=== PATIENT | female | born 1955 | race Caucasian/White ===

== ENCOUNTER 2017-11-20 06:37 | Observation (INO) | payer OTHER ==
[2017-11-20] MEDS ORDERED: NS 1,000 ML IV ONE (06:42)
--- NOTE | 2017-11-20 07:06 | CPEKG ---
Heart Rate: 83 RR Interval: 723 P-R Interval: 176 QRSD Interval: 86 QT Interval: 364 QTC Interval: 428 P [place]: 59 QRS [place]: 26 T Wave [place]: 53 EKG Severity - NORMAL ECG - EKG Impression: SINUS RHYTHM Electronically Signed By: Zeke Truong 20-Nov-2017 07:27:11
[2017-11-20 07:19] LABS: PLATELET COUNT 242 10^3/uL (150-400)
[2017-11-20 07:27] LABS: INR 0.83 (0.83-1.16); PROTIME(PATIENT) 11.6 SEC (12.0-15.0)
--- NOTE | 2017-11-20 08:15 | PDANEPAE ---
ANE History of Present Illness h/o SVT p/f EPS/ablation ANE Past Medical History - Cardiovascular History Hx Hypertension: Yes Hx Arrhythmias: Yes Hx Chest Pain: No Hx Coronary Artery / Peripheral Vascular Disease: No Hx CHF / Valvular Disease: No Hx Palpitations: Yes - Pulmonary History Hx COPD: Yes Hx Oxygen in Use at Home: No Hx Sleep Apnea: Yes - Neurologic History Hx Cerebrovascular Accident: No Hx Seizures: No Hx Dementia: No - Chronic Pain History Chronic Pain: Yes ANE Review of Systems Review of systems is: negative Review of Systems: - Exercise capacity Exercise capacity: <4 METS ANE Patient History - Allergies Allergies/Adverse Reactions: No Known Allergies Allergy (Unverified 11/18/17 13:49) - Home Medications Home medications: home medication list seen and reviewed Home Medications: Amitriptyline HCl [Elavil 50 mg (*)] 25 - 50 mg PO HS 11/18/17 [Last Taken 11/19 20:00] DULoxetine [Cymbalta 30 MG (*)] 30 mg PO DAILY 11/18/17 [Last Taken 11/19/17 06: 30] DULoxetine [Cymbalta 60 MG (*)] 90 mg PO DAILY 11/18/17 [Last Taken 11/19/17 06: 30] Gabapentin [Neurontin 300 MG (*)] 1,200 mg PO HS 11/18/17 [Last Taken 11/19/17 20:00] Metoprolol Tartrate [Lopressor 25 mg (*)] 25 mg PO BID 11/18/17 [Last Taken 05/24 06:30] Pantoprazole Sodium [Protonix 40mg (*)] 40 mg PO DAILY 11/18/17 [Last Taken 06:30] Tapentadol HCl [Nucynta 50 MG (*)] 50 mg PO TID 11/18/17 [Last Taken 11/20/17 06 :00] amLODIPine BESYLATE [Norvasc 5 mg (*)] 5 mg PO DAILY 11/18/17 [Last Taken 06:30] - Anes Hx Anes Hx: no prior problems - Smoking Hx Smoking Status: Heavy smoker ANE Labs/Vital Signs - Labs Result Diagrams: 11/20/17 07:00 11/20/17 07:00 - Vital Signs Height: 173 cm Weight: 88.5 kg ANE Physical Exam - Airway Neck exam: FROM Mallampati Score: Class 2 Mouth exam: dentures - Pulmonary Pulmonary: no respiratory distress - Cardiovascular Cardiovascular: regular rate and rhythym - ASA Status ASA Status: III ANE Anesthesia Plan Anesthesia Plan: general endotracheal anesthesia
[2017-11-20] MEDS ORDERED: LIDOCAINE 1% 300 MG/30 ML SDV ONE (08:23)
[2017-11-20] MEDS ORDERED: fentaNYL 100 MCG/2 ML INJ ONE (08:23)
[2017-11-20] MEDS ORDERED: HEPARIN 10,000 UNIT/10 ML MDV (1,000 UNIT/ML) ONE (08:23)
[2017-11-20] MEDS ORDERED: PROPOFOL 200 MG/20 ML VIAL ONE ×2 (08:23→09:06)
[2017-11-20] MEDS ORDERED: BUPIVACAINE 0.5% 30 ML SDV ONE (08:23)
[2017-11-20] MEDS ORDERED: ISOPROTERENOL HCL/D5W 0.2 MG/50 ML BAG IV ONE (08:24)
[2017-11-20] MEDS ORDERED: ROCURONIUM 100 MG/10 ML VIAL ONE (08:29)
[2017-11-20] MEDS ORDERED: MIDAZOLAM 2 MG/2 ML VIAL IVP ONE (08:32)
[2017-11-20] MEDS ORDERED: PHENYLEPHRINE HCL 100 MCG/ML SYR ONE (08:33)
[2017-11-20] MEDS ORDERED: DEXAMETHASONE 4 MG/ML VIAL ONE (08:39)
[2017-11-20] MEDS ORDERED: ONDANSETRON 4 MG/2 ML VIAL ONE (08:39)
[2017-11-20] MEDS ORDERED: SUGAMMADEX SODIUM 200 MG/2 ML VIAL IVP ONE (08:39)
--- NOTE | 2017-11-20 08:40 | PDGENHP ---
History & Physical Chief Complaint: symptomatic svt History of Present Illness: svt Relevant Physical Exam: [id number] Cardiorespiratory Assessment: sx svt for ablation
[2017-11-20] MEDS ORDERED: PHENYLEPHRINE 10 MG/ML SDV ONE (08:48)
[2017-11-20] MEDS ORDERED: HYDROmorphONE/DILAUDID 1 MG/ML INJ IVP PRN (10:57)
[2017-11-20] MEDS ORDERED: HYDROCODONE/APAP 5/325 TAB PO PRN (10:57)
[2017-11-20] MEDS ORDERED: OXYCODONE/APAP 5/325 TAB PO PRN (10:57)
[2017-11-20] MEDS ORDERED: NALOXONE HCL 0.4 MG/ML INJ IVP PRN (10:57)
[2017-11-20] MEDS ORDERED: NS 500 ML IV PRN (10:57)
[2017-11-20] MEDS ORDERED: ACETAMINOPHEN 500 MG TAB PO PRN (10:57)
[2017-11-20] MEDS ORDERED: ALBUTEROL 3 ML DEYVIAL IH PRN (10:57)
[2017-11-20] MEDS ORDERED: fentaNYL 100 MCG/2 ML INJ IVP PRN (10:57)
[2017-11-20] MEDS ORDERED: ONDANSETRON 4 MG/2 ML VIAL IVP PRN (10:57)
--- NOTE | 2017-11-20 10:57 | POSTANESTH ---
Post Anesthetic Evaluation Cardiovascular Status: Normal, Stable Respiratory Status: Normal, Stable Level of Consciousness/Mental Status: Can Participate in Eval Pain Control: Adequate, Prn Tx Ordered Nausea/Vomiting Control: Adequate, Prn Tx Ordered Complications Possibly Related to Anesthesia: None Noted
--- NOTE | 2017-11-20 11:08 | CPEKG ---
Heart Rate: 77 RR Interval: 779 P-R Interval: 180 QRSD Interval: 90 QT Interval: 388 QTC Interval: 440 P [place]: 71 QRS [place]: 36 T Wave [place]: 55 EKG Severity - NORMAL ECG - EKG Impression: SINUS RHYTHM Electronically Signed By: Mike Leonard 20-Nov-2017 11:10:00
--- NOTE | 2017-11-20 11:11 | EPPROC ---
Electrophysiology Procedure Note: ELECTROPHYSIOLOGIC STUDY AND CATHETER MEDIATED ABLATION OF SLOW/FAST AV RADHA REENTRY TACHYCARDIA PROCEDURES PERFORMED: 30777-74 EP evaluation with RA/RV/LA pace/record, with arrhythmia induction 01603-78 EP evaluation with RA/RV pace record, insert/reposition catheter, with arrhythmia induction 53329 Intracardiac catheter ablation, SVT arrhythmogenic focus 73331 3D mapping Fluoroscopy INDICATION: Recurrent SVT PROCEDURE: Catheters & Anesthesia: The patient arrived in the Electrophysiology Laboratory in the fasting state. The right clavicular region, right groin, and left groin area were prepped and draped in the usual sterile manner. Anesthesiologist Dr. Allen administered general anesthesia. Appropriate non-invasive blood pressure, pulse oximetry and end-tidal CO2 monitoring was established. All catheters were placed percutaneously using the modified Seldinger technique , and advanced into position under fluoroscopic guidance. One #6 [place] hexapolar non-deflectable electrode catheter was inserted into the right atrial appendage via the left femoral vein (2mm spacing; except the proximal ring which was 25cm from the tip used for unipolar recordings). One #7 [place] deflectable octapolar electrode catheter was advanced to the His-bundle position via the left femoral vein (2mm spacing). One #7 [place] deflectable quadrapolar catheter was advanced to the anteroseptal right ventricle via the right femoral vein. One #7 [place] deflectable catheter with 10 pairs of electrodes was placed via the right femoral vein into the coronary sinus. Heparin was given to keep ACT > 200 s. Programmed stimulation was performed from the right atrium, right ventricle and coronary sinus (left atrium). Parahisian pacing demonstrated constant H-A interval with changing V-A intervals and stimulus-A intervals during capture and loss of capture of proximal RBB proving retrograde conduction over AV node. AVNRT was induced easily at baseline. Ventricular extrastimuli delivered during tachycardia without altering antegrade His bundle activation did not advance next atrial potential, indicating that the tachycardia was not utilizing an accessory pathway for retrograde conduction. VA interval was 80 ms. Post entrainment of the tachycardia from the ventricle, there was VAHV response. Mapping of the right atrium and coronary sinus during AVNRT identified earliest atrial activation above the tendon of [place] at a level slightly posterior to the level of the His bundle, consistent with retrograde conduction over the fast AV radha pathway. A #8 [place] deflectable quadrapolar electrode catheter (2mm-5mm-2mm spacing) with 4 mm tip electrode and sensor for the 3D mapping Carto system was advanced to the right atrium. 3 D mapping of the inter-atrial septum and coronary sinus was performed and location of the AV node was marked. A SL2 sheath was used. RF applications were delivered to the region between the tricuspid annulus and the coronary sinus ostium, at the level of the upper edge of the coronary sinus ostium. Radiofrequency applications were also delivered along the roof of the proximal coronary sinus. Junctional rhythm occurred during all of the RF applications. Post ablation, patient had faster SVT, CL 380 ms with WBB to the atrium. This was consistent with AVNRT with WBB in upper common pathway. BP during this SVT was in the 60s therefore we did not attempt any pacing maneuvers to differentiate between AVNRT with WBB in upper common pathway vs. junctional tachycardia. We mapped the retrograde slow AV radha pathway to the proximal roof of coronary sinus and ablated it. Post ablation of retrograde slow AV radha pathway, the above mentioned SVT was not inducible. The catheters were removed. Sheaths were removed in the EP lab after applying subcutaneous purse string suture. The patient was transferred to the cardiovascular holding area in stable condition. There were no apparent complications. Results: A. Spontaneous Intervals: Pre ablation SCL 910 ms AH 110 ms HV 40 ms Post ablation SCL 730 ms AH 90 ms HV 40 ms B. Antegrade AV radha function (decremental pacing) Pre ablation FPERP 400 ms SPERP 330 ms WBB CL 320 ms Post ablation FPERP 350 ms WBB CL 340 ms C. Retrograde AV radha function (decremental pacing) Pre ablation FPERP 400 ms WBB CL 390 ms D. Arrhythmias: Sustained slow/fast AVNRT Cycle length 420 ms, AH interval 310 ms, [place] interval 110 ms VA interval _80_ ms AVNRT with block in upper common pathway (more V than A) CL 380 ms CONCLUSIONS 1. 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 ( Slow/fast AVNRT). 2. 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 Successfully ablated after ablation of retrograde slow AV radha pathway. 3. Successful ablation of the slow AV radha pathway with elimination of 1:1 antegrade conduction over the slow AV radha pathway, all retrograde conduction over the slow AV radha pathway and the inducibility of AVNRT. 4. No complications. Patient Problems: Problems Problem Status Onset Supraventricular tachycardia Acute
[2017-11-20] MEDS: TAPENTADOL HCL 50 MG TAB PO SCH ×2 (15:01→18:24)
[2017-11-20] MEDS: amLODIPine BESYLATE 5 MG TAB PO SCH (15:01)
[2017-11-20] MEDS ORDERED: LISINOPRIL 5 MG TAB PO ONE (17:45)
[2017-11-20] MEDS ORDERED: AMITRIPTYLINE HCL 50 MG TAB PO PRN (20:39)
[2017-11-20] MEDS ORDERED: GABAPENTIN 300 MG CAP PO SCH (21:00)
[2017-11-20] MEDS ORDERED: AMITRIPTYLINE HCL 50 MG TAB PO SCH (21:00)
[2017-11-21 04:34] VITALS: RESP 16; TEMP 97.7
[2017-11-21 04:43] LABS: PLATELET COUNT 214 10^3/uL (150-400)
[2017-11-21 04:50] LABS: INR 0.94 (0.83-1.16); PROTIME(PATIENT) 12.8 SEC (12.0-15.0)
[2017-11-21 04:56] LABS: CREATINE KINASE 71 IU/L (0-156)
[2017-11-21] MEDS: TAPENTADOL HCL 50 MG TAB PO SCH (06:20)
[2017-11-21 07:19] VITALS: PULSE 76; O2SAT 96
[2017-11-21] MEDS ORDERED: PNEUMOCOCCAL 0.5ML VACCINE VIAL IM ONE (07:34)
[2017-11-21] MEDS ORDERED: FLU VACC QS 2017-18 (3YR+)/PF 0.5 ML SYR (FLUARIX QUAD) IM ONE (07:34)
--- NOTE | 2017-11-21 08:55 | CPEKG ---
Heart Rate: 72 RR Interval: 833 P-R Interval: 168 QRSD Interval: 90 QT Interval: 384 QTC Interval: 421 P [place]: 37 QRS [place]: 48 T Wave [place]: 49 EKG Severity - NORMAL ECG - EKG Impression: SINUS RHYTHM Electronically Signed By: Mike Leonard 21-Nov-2017 09:01:30
[2017-11-21] MEDS ORDERED: ASPIRIN 81 MG CHEWABLE TAB PO SCH (09:00)
[2017-11-21] MEDS ORDERED: PANTOPRAZOLE SODIUM 40 MG TAB PO SCH (09:00)
[2017-11-21] MEDS ORDERED: DULoxetine 30 MG CAP PO SCH (09:00)
[2017-11-21] MEDS ORDERED: LISINOPRIL 10 MG TAB PO SCH (09:00)
[2017-11-21] MEDS ORDERED: DULoxetine 60 MG CAP PO SCH (09:00)
[2017-11-21] MEDS ORDERED: ATORVASTATIN CALCIUM 20 MG TAB PO SCH (09:00)
[2017-11-21] MEDS: amLODIPine BESYLATE 5 MG TAB PO SCH (09:18)
[2017-11-21 09:20] VITALS: BP 149/78
--- NOTE | 2017-11-21 09:21 | ECHO ---
[email or web address] [address] [address] Main: [phone] Fax: Transthoracic Echocardiogram Name: SUN MARIN MR#: [id number] Study Date: 11/21/2017 Study Time: 07:37 AM Date of : 1955 Age: 62 year(s) Height: 172.7 cm (68 in.) Weight: 88.45 kg (195 lb.) BSA: 2.02 m2 Gender: Female Examination: Echo Indication: F/U post EP study Image Quality: Contrast: Requested by: Mike Leonard BP: 115 mmHg/59 mmHg Heart Rate: Rhythm: Indication: F/U post EP study Procedure Staff Dump Worker: Fani Flores RDCS Reading Physician: Mike Leonard Requesting Provider: Conclusions: Normal global systolic LV function. Minimal aortic cusp calcification is noted. Measurements: Chambers Valvular Assessment AV/MV Valvular Assessment TV/PV Normal Normal Normal Name Value Range Name Value Range Name Value Range Ao Cathleen (MM): 3.3 cm (2.2 cm-3.7 AV meanP mmHg ( - ) cm) MV E Vmax: 0.63 m/s ( - ) IVSd (2D): 0.8 cm (0.6 cm-1.1 MV A Vmax: 1.04 m/s ( - ) cm) MV E/A: 0.61 ( - ) LVDd (2D): 4.8 cm (3.9 cm-5.3 cm) LVDs (2D): 2.4 cm (2.1 cm-4 cm) LVPWd (2D): 0.7 cm ( - ) LVEF (MOD4): 69 % (>=55 %) EF Range: 65-70 % Continued Measurements: Chambers Valvular Assessment AV/MV Name Value Name Value LADs: 3.6 cm MV E/E' Lateral: 9.10 LADs Lon.0 cm LA Area: 15.6 cm2 Findings: Left Ventricle: Patient: SUN MARIN Study Date: 11/21/2017 Page 1 of 2 07:37 AM Normal size left ventricle. Borderline concentric LV hypertrophy. Normal global systolic LV function. The ejection fraction is estimated to be 65-70 %. No regional wall motion abnormality. Normal diastolic LV function. Right Ventricle: Normal size right ventricle. Left Atrium: The left atrium is normal in size. Right Atrium: The right atrium is normal in size. Mitral Valve: The mitral valve is normal in appearance and function. Trivial mitral valve regurgitation. Aortic Valve: Minimal aortic cusp calcification is noted. Trivial aortic valve regurgitation. Tricuspid Valve: The tricuspid valve is normal in appearance and function. Pulmonic Valve: The pulmonic valve is normal in appearance and function. Aorta: The aorta is normal. Pericardium: No pericardial effusion. There is pericardial fat. (No Signature Object) Patient: SUN MARIN Study Date: 11/21/2017 Page 2 of 2 07:37 AM [id number]
--- NOTE | 2017-11-21 18:55 | GDS ---
[f rep st] DISCHARGE SUMMARY DISCHARGE DIAGNOSES: 1. Supraventricular tachycardia. 2. Status post ablation of atrioventricular shanthi reentry tachycardia. 3. Hypertension. 4. Chronic pain. BRIEF HISTORY: This is a 62-year-old woman who has had symptoms of palpitations, of racing heart rat es since 1989. These have occurred 1-4 times per year. Most recent episode required an ER admission at [facility] and subsequent cardioversions. HOSPITAL COURSE: Dr. Leonard performed an ablation of slow-fast AVNRT. Successful ablation of the slow AV shanthi pathway with elimination of 1:1 antegrade conduction over the slow AV shanthi pathway, all ret rograde conduction over slow AV shanthi pathway and inducibility of AVNRT. The patient reports feeling great. She denies any chest pain, pressure, tightness, or shortness of breath. She denies any pain at her groin sites. She does have a history of hypertension. Her medications have been adjusted re cently due to weight loss and decreasing blood pressure. Also, she had taken metoprolol for the tach ycardias. She did receive extra blood pressure medication this morning for elevated blood pressure w hich is now normalized. quality assurance monitor final has demonstrated sinus rhythm with PACs and no SVT overnig ht. TESTING DONE: Echocardiogram demonstrates borderline concentric LV hypertrophy. Ejection fraction i s 65 to 70%, with no wall motion abnormalities, and there is no pericardial effusion. 12-lead EKG de monstrates sinus rhythm without ST-T wave changes. LAB WORK: WBC is 12.09, hemoglobin 12.9, hematocrit 39.2, platelets 214. Sodium 140, potassium 4.0, chloride 105, bicarb 28, BUN 11, creatinine 0.5, glucose 132, CK 71, CK-MB 1.88. Troponin is 0.459. These are elevated and to be expected post ablation. PHYSICAL EXAMINATION: VITAL SIGNS: Blood pressure is 115/59, pulse is 76, respirations 16, temperat ure is 36.5, O2 saturation is 96% on 2 L. GENERAL: She is alert and oriented. Walking about the ro om. In no acute distress. CARDIAC: Regular rate and rhythm without a murmur, rub, or gallop. LUNG S: Clear to auscultation. ABDOMEN: Soft and nontender. Groin sites are without bleeding or hemato ma. Lower extremities are warm. No discoloration. No lower extremity edema. Bilateral +2 pedal pu lses. DISCHARGE INSTRUCTIONS: The patient was given verbal activity restrictions post ablation, as well as written instructions. She does have a blood pressure monitor at home and will continue to monitor h er blood pressures and she was restarted on her usual lisinopril dose. She will follow up with her [facility] care for further management of her hypertension. DISCHARGE MEDICATIONS: Please see discharge medication reconciliation. Of note, she understands to take 81 mg enteric-coated aspirin for 6 weeks post ablation. FOLLOWUP: She has a followup scheduled with Dr. Leonard on December 19, at 10:00. /[id number]/MODL
== END 2017-11-21 11:15 | disposition home or self-care (01) ==
LOC: FCATH 06:37 → F2W 10:36
PROVIDERS: ADMIT Internal Medicine Cardiovascular Disease; ATTEND Internal Medicine Cardiovascular Disease
DX: I47.1 Supraventricular tachycardia (principal); I10 Essential (primary) hypertension; G89.29 Other chronic pain; F17.210 Nicotine dependence, cigarettes, uncomplicated; Z23 Encounter for immunization
CPT/HCPCS: 90471; 93005; 93306; 93613; 93621; 93623; 93653; C1730; C1732; C1893; G0378; C1731; G0008; G0009; J1100; J1644; J2370; J2405; J2704; J3010